=== PATIENT | female | born 1970 | race Caucasian/White ===

== ENCOUNTER → 2019-11-25 | Outpatient (CLI) | payer OTHER | LOC: WI 06:52 | PROVIDERS: ATTEND Physician Assistant Medical | DX: Z12.31 Encounter for screening mammogram for malignant neoplasm of breast (principal) | CPT/HCPCS: 77067 ==

== ENCOUNTER 2020-01-16 10:15 | Emergency (ER) | payer OTHER ==
[2020-01-16] MEDS ORDERED: ASPIRIN 81 MG TABLET, CHEWABLE PO ONE (10:31)
--- NOTE | 2020-01-16 10:34 | ER Document Report ---
ED Medical Screen (RME) - General Chief Complaint: Chest Pain Stated Complaint: CHEST PAIN Time Seen by Provider: 01/16/20 10:31 Primary Care Provider: LARS SALAZAR PA-C [Primary Care Provider] - Follow up as needed Mode of Arrival: Ambulatory Information source: Patient Notes: 49-year-old female presented to ED for complaint of left-sided chest heaviness tired with left arm feeling very heavy. She states she had some chest pain on Sunday she took some aspirin and Pepcid and felt better so she went on to sleep she had chest pain again so she went to Dr. Almonte had a EKG and he sent her home this morning she had heaviness in her chest very tired with heaviness to the left arm so she came to the emergency room. She does have a past medical history of reflux thyroid ectomy hysterectomy cholecystectomy high blood pressure and cholesterol. She is on estrogen, Coreg, Zetia, and thyroid medications. She is alert oriented respirations regular nonlabored speaking in full sentences. I have greeted and performed a rapid initial assessment of this patient. A comprehensive ED assessment and evaluation of the patient, analysis of test results and completion of medical decision making process will be conducted by an additional ED providers. TRAVEL OUTSIDE OF THE [place] IN LAST 30 DAYS: No - Related Data Allergies/Adverse Reactions: cefixime [From Suprax] Allergy (Verified 01/16/20 10:25) codeine Allergy (Verified 01/16/20 10:25) latex Allergy (Verified 01/16/20 10:25) Doctor's Discharge - Discharge Referrals: LARS SALAZAR PA-C [Primary Care Provider] - Follow up as needed
[2020-01-16 11:13] LABS: ABSOLUTE EOSINOPHILS # (AUTO) 0.1 10^3/uL (0.0-0.6); ABSOLUTE LYMPHOCYTES (AUTO) 2.2 10^3/uL (0.5-4.7); ABSOLUTE MONOCYTES (AUTO) 0.3 10^3/uL (0.1-1.4); ABSOLUTE NEUT (AUTO) 4.4 10^3/uL (1.7-8.2); BASOPHILS % (AUTO) 0.2 % (0-2); EOSINOPHILS % (AUTO) 1.4 % (0-6); HEMATOCRIT 39.1 % (36.0-47.0); HEMOGLOBIN 13.2 g/dL (12.0-15.5); LYMPHOCYTES % (AUTO) 31.6 % (13-45); MEAN CORPUSCULAR HEMOGLOBIN 27.7 pg (27.0-33.4); MEAN CORPUSCULAR HGB CONC 33.8 g/dL (32.0-36.0); MEAN CORPUSCULAR VOLUME 82 fl (80-97); MONOCYTES % (AUTO) 4.8 % (3-13); PLATELET COUNT 287 10^3/uL (150-450); RED BLOOD COUNT 4.78 10^6/uL (3.72-5.28); RED CELL DISTRIBUTION WIDTH 16.4 % (11.5-14.0); TOTAL CELLS COUNTED % (AUTO) 100 %; WHITE BLOOD COUNT 7.1 10^3/uL (4.0-10.5)
--- NOTE | 2020-01-16 11:18 | RADIOLOGY REPORT (SQ) ---
EXAM DESCRIPTION: CHEST 2 VIEWS IMAGES COMPLETED DATE/TIME: 01/16/2020 11:08 am REASON FOR STUDY: chest pain left with left arm heaviness COMPARISON: None. EXAM PARAMETERS: NUMBER OF VIEWS: Two views. TECHNIQUE: PA and lateral views of the chest were obtained. RADIATION DOSE: NA LIMITATIONS: None. FINDINGS: LUNGS AND PLEURA: No consolidation, pleural effusion or pneumothorax. MEDIASTINUM AND HILAR STRUCTURES: No mediastinal or hilar contour abnormality. HEART AND VASCULAR STRUCTURES: The cardiac silhouette and pulmonary vasculature are within normal lopez its. BONES: No acute findings. HARDWARE: Surgical clips that project above the thoracic inlet. OTHER: No other finding. IMPRESSION: No acute cardiopulmonary process. TECHNICAL DOCUMENTATION: JOB ID: [id number] [employer]- All Rights Reserved Reading location - IP/workstation name: [email or web address]
[2020-01-16 11:31] LABS: ALBUMIN 4.1 g/dL (3.5-5.0); ALKALINE PHOSPHATASE 109 U/L (38-126); ANION GAP 5 (5-19); ASPARTATE AMINO TRANSFERASE 24 U/L (14-36); BILIRUBIN,TOTAL 0.5 mg/dL (0.2-1.3); BLOOD UREA NITROGEN 11 mg/dL (7-20); CALCIUM 9.3 mg/dL (8.4-10.2); CARBON DIOXIDE 27 mmol/L (22-30); CHLORIDE 107 mmol/L (98-107); GLUCOSE 121 mg/dL (75-110); POTASSIUM 3.9 mmol/L (3.6-5.0); TOTAL PROTEIN 6.9 g/dL (6.3-8.2)
--- NOTE | 2020-01-16 12:13 | EKG REPORT ---
SEVERITY:- NORMAL ECG - SINUS RHYTHM : Confirmed by: Stas Reynaga MD 16-Jan-2020 12:12:56
--- NOTE | 2020-01-16 14:39 | ER Document Report ---
Entered by MIRHTA QUINONEZ SCRIBE 01/16/20 1103 Acting as scribe for:FABRICIO POTTER MD ED General - General Chief Complaint: Chest Pain Stated Complaint: CHEST PAIN Time Seen by Provider: 01/16/20 10:31 Primary Care Provider: LARS SALAZAR PA-C [Primary Care Provider] - Follow up as needed Mode of Arrival: Ambulatory Information source: Patient Notes: This 49 year old female patient presents to the emergency department today with complaints of chest pain and pain in her left shoulder. Patient states at 1:00 am yesterday morning, pain in her chest and left shoulder woke her up from her sleep. Patient states the pain is not severe but uncomfortable and took baby aspirin and Pepcid which relieved her symptoms after x1 hour. Patient states yesterday her chest felt odd and went to get a EKG done with her Doctor she sees for her sleep apnea. Patient states the EKG was normal and she is scheduled for a echo and stress test. Patient states at 6:45 am this morning she was woken up by chest pain again and her left shoulder and arm ached. Patient states her Pepcid and aspirin did not relieve her symptoms this time. 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 Patient denies nausea, palpations, or sweating while she has chest pain. Patient states her bowel movements are normal and has been burping more than usual. Patient states her pain is currently a 1 out of 10, but is worried since she has a family history of heart problems. TRAVEL OUTSIDE OF THE [place] IN LAST 30 DAYS: No - Related Data Allergies/Adverse Reactions: cefixime [From Suprax] Allergy (Verified 01/16/20 10:25) codeine Allergy (Verified 01/16/20 10:25) latex Allergy (Verified 01/16/20 10:25) Home Medications: Coreg 12.5 mg BID. Zeta 10 mg. Daily vitamins. OTC estrogen. Thryroid Past Medical History - General Information source: Patient - Social History Smoking Status: Never Smoker Cigarette use (# per day): No Family History: CAD Patient has suicidal ideation: No Patient has homicidal ideation: No - Past Medical History Cardiac Medical History: Reports: Hx Hypercholesterolemia, Hx Hypertension Pulmonary Medical History: Reports: Hx Sleep Apnea Past Surgical History: Reports: Hx Cholecystectomy, Hx Hysterectomy, Hx Thyroid Surgery - Thyroidectomy Review of Systems - Review of Systems Constitutional: See HPI. denies: Diaphoresis EENT: No symptoms reported Cardiovascular: See HPI, Chest pain. denies: Palpitations Respiratory: See HPI. denies: Short of breath Gastrointestinal: See HPI. denies: Nausea Genitourinary: No symptoms reported Female Genitourinary: No symptoms reported Musculoskeletal: See HPI Skin: No symptoms reported Hematologic/Lymphatic: No symptoms reported Neurological/Psychological: See HPI -: Yes All other systems reviewed and negative Physical Exam - Vital signs Vitals: Temp Pulse Resp BP Pulse Ox 98.5 F 80 16 139/81 H 96 01/16/20 10:34 01/16/20 10:34 01/16/20 10:34 01/16/20 10:34 01/16/20 10:34 - General General appearance: Appears well, Alert - HEENT Head: Normocephalic, Atraumatic Eyes: Normal Pupils: PERRL - Respiratory Respiratory status: No respiratory distress Chest status: Nontender Breath sounds: Normal Chest palpation: Normal - Cardiovascular Rhythm: Regular Heart sounds: Normal auscultation, S1 appreciated, S2 appreciated Murmur: No - Abdominal Inspection: Obese Distension: No distension Bowel sounds: Normal Tenderness: Nontender - Extremities General upper extremity: Normal inspection. No: Edema General lower extremity: Normal inspection. No: Edema - Neurological Neuro grossly intact: Yes Cognition: Normal Orientation: AAOx4 - Psychological Associated symptoms: Normal affect, Normal mood - Skin Skin Temperature: Warm Skin Moisture: Dry Skin Color: Normal Course - Re-evaluation Re-evalutation: 01/16/20 12:03 Patient is resting comfortably at this time denies any chest pain or shoulder pa in or any discomfort in her thorax at this time. Denies any nausea vomiting. 01/16/20 14:33 Patient is resting comfortably showing no signs of distress continues to deny any chest pain nausea vomiting at all at this time. 01/16/20 14:33 Discussed with patient that most likely she has reflux symptoms and that we are adding Reglan to assist in lower esophageal sphincter tone to try to reduce reflux and also asked patient to use of antigravity measures such as raising the head of her bed or sleeping on 2 pillows. Patient is scheduled for an outpatient stress test this week coming up and encouraged patient to continue to plan for that test to be done. 01/16/20 14:36 Patient's cardiac risk score is 3 patient has strong family history high blood pressure and cholesterol. Patient is also obese. Patient symptoms though appear to be chest pain only when she is lying in bed awake in her early a.m. hours. Patient states she gets better with Pepcid and aspirin. Patient has been evaluated for cardiac event while in this emergency department and thus far there is no evidence that she is in any acute distress or dangerousness a acute coronary syndrome event going on at this time. Patient is advised to come back to the emergency department if there is any further complication. - Vital Signs Vital signs: Temp Pulse Resp BP Pulse Ox 98.5 F 80 20 122/71 96 01/16/20 10:34 01/16/20 10:34 01/16/20 12:01 01/16/20 12:01 01/16/20 12:01 - Laboratory Result Diagrams: 01/16/20 10:50 01/16/20 10:50 Laboratory results interpreted by me: 01/16/20 01/16/20 10:50 10:50 RDW 16.4 H Glucose 121 H Repeat troponin again normal and flat 0.012. - Diagnostic Test Radiology reviewed: Image reviewed, Reports reviewed Radiology results interpreted by me: 01/16/20 12:03 Chest x-ray PA and lateral shows no acute process. - EKG Interpretation by Me Additional EKG results interpreted by me: 01/16/20 12:02 12-lead EKG done at 1020 shows a normal sinus rhythm no acute ST-T wave changes. Discharge - Discharge Clinical Impression: GERD (gastroesophageal reflux disease), Atypical chest pain Condition: Stable Disposition: HOME, SELF-CARE Instructions: Reflux Disease (GERD) ([facility]) Additional Instructions: Reflux Disease (GERD) Gastro-Esophageal Reflux Disease (GERD) is caused by stomach acid refluxing back up into the esophagus. The valve at the end of the esophagus may be weak. This is common in persons with a hiatal hernia. GERD symptoms can include indigestion, chest pain, heartburn, or food "sticking." Certain foods, alcohol, and aspirin can make GERD worse. Treatment depends on the severity. Usually, antacids or acid-suppressing medicines are used. When the esophagus is acutely inflamed, the physician will often prescribe membrane-protective drugs such as Carafate. Some patients benefit from medication such as Reglan that tightens the valve at the top of the stomach. Avoid those foods that bring on your symptoms. For many people, these foods are coffee, chocolate, onions, garlic, and carbonated drinks. Don't use alcohol, aspirin, caffeine, or tobacco. Don't eat late at night -- within 4 hours of bedtime. Don't over-eat. If necessary, elevate the head of your bed about 4 inches so that stomach acid will not roll up into your esophagus. Call the doctor if you develop severe chest pain, inability to swallow fluids, fever, or worsening symptoms. Prescriptions: Metoclopramide HCl [Reglan 10 mg Tablet] 10 mg PO ACHS #30 tablet Referrals: LARS SALAZAR PA-C [Primary Care Provider] - Follow up as needed I personally performed the services described in the documentation, reviewed and edited the documentation which was dictated to the scribe in my presence, and it accurately records my words and actions.
[2020-01-16 14:51] VITALS: BP 130/71
== END 2020-01-16 14:57 | disposition home or self-care (01) ==
LOC: ER 10:15
DX: K21.9 Gastro-esophageal reflux disease without esophagitis (principal); R07.89 Other chest pain; E66.9 Obesity, unspecified; E78.00 Pure hypercholesterolemia, unspecified; I10 Essential (primary) hypertension; Z88.6 Allergy status to analgesic agent; Z91.040 Latex allergy status; Z90.49 Acquired absence of other specified parts of digestive tract; Z90.710 Acquired absence of both cervix and uterus
CPT/HCPCS: 36415; 71046; 80053; 84484; 85025; 93005; 93010; 99285